=== PATIENT | female | born 1965 | race Caucasian/White ===

== ENCOUNTER 2016-08-03 19:51 | Emergency (ER) | payer OTHER ==
--- NOTE | 2016-08-05 14:00 | ER ---
ADMIT: 08/03/2016 RM/LOC: ER [facility] MR#: [id number] [address] [id number] [address] [place] [id number] Emergency Room Report SEX: F AGE: 50 : 1965 DATE: 08/03/2016 See T-sheet for complete H and P. ADDENDUM: A 50-year-old female, presents from [facility] in private vehicle for evaluation of concern of possible DVT and right lower extremity. 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 She has been on Xarelto for quite sometime now for chronic anticoagulation. She states for the past 2-3 days, she has had pain in her right leg that is consistent with pain she has had before with a DVT, but she has been told that she does have a chronic DVT in that leg. She was seen at an outside facility. Did not have ability to work this up further, so she came here for further workup. She denies any chest pain, but did have some pain in her left scapula and left shoulder, but did not have shortness of breath. She is not tachycardic and not hypoxic. Blood pressure is fine. On examination, her right leg she does have tenderness following the distribution of her venous system in her right leg consistent with what I would believe to find in a DVT. We ended up getting an ultrasound of her right lower extremity which reveals a nonocclusive DVT in the right lower extremity from the mid superficial vein to the popliteal vein. I cannot tell the age at this clot, however. We also got a CT angio of the chest, which is negative for anything acute. As the patient is already on Xarelto but could have a new or possibly old DVT, we will switch her to Lovenox at this time and would have her follow up with Hematology. She was given her 1st shot of Lovenox in the Emergency Department and some pain control. She is discharged home on Lovenox b.i.d. for the next 10 days. She is sent home on [place] and the patient will be given instructions to follow up with me also with Hematology. She is told to return for any difficulty breathing or any other concerns. DIAGNOSES: 1. Right lower extremity deep vein thrombosis. 2. Antithrombin III. 3. Protein S deficiency. Corey Bullard MD/ nazia JOB #: [id number] CC: Wally Valdez MD, Attending Physician Jarvis Amezquita MD, Family Physician
== END 2016-08-03 23:45 | disposition home or self-care (01) ==
LOC: ER 19:51
DX: I82.411 Acute embolism and thrombosis of right femoral vein (principal); I82.431 Acute embolism and thrombosis of right popliteal vein; D68.59 Other primary thrombophilia; Z88.0 Allergy status to penicillin; Z88.2 Allergy status to sulfonamides; Z79.899 Other long term (current) drug therapy